=== PATIENT | female | born 2000 | race Caucasian/White ===

== ENCOUNTER → 2024-10-20 | Outpatient (CLI) | payer BC ==
[2024-10-20 16:29] LABS: BASOPHIL # 0.1 10^3/uL (0.0-0.1); BASOPHIL % 0.7 % (0.1-1.2); EOSINOPHIL # 0.3 10^3/uL (0.0-0.2); EOSINOPHIL % 3.7 % (0.0-5.0); HEMATOCRIT(ML) 41.7 % (36.0-46.0); HEMOGLOBIN 13.7 g/dL (12.0-15.0); LYMPHOCYTES # 2.63 10^3/uL1 (1.0-4.8); LYMPHOCYTES % 35.6 % (24.0-44.0); MEAN CORP HGB 29.6 pg (26-34); MEAN CORP HGB CONCENTRATION 32.9 g/dL (33-36.5); MEAN CORP VOLUME 90.1 fL (78-100); MONOCYTES # 0.5 10^3/uL (0.3-0.8); MONOCYTES % 6.8 % (5.0-12.0); NEUTROPHIL # 3.9 10^3/uL (1.8-7.7); NEUTROPHILS % 53.1 % (41.0-85.0); PLATELET COUNT 296 10^3/uL (150-400); RED BLOOD CELL 4.63 10^6/uL (4.00-5.20); RED CELL DISTRIBUTION WIDTH 12.1 % (11.5-14.5); WHITE BLOOD CELL 7.4 10^3/uL (4.5-11.0)
[2024-10-20 16:33] LABS: +ADD MANUAL DIFF(NO CHRG) 0
[2024-10-20 17:16] LABS: ALBUMIN(ML) 3.6 g/dL (3.4-5.0); ALBUMIN/GLOBULIN RATIO 0.947; ANION GAP 10.5; BUN/CREATININE RATIO 15.38 (10.0-20.0); C-REACTIVE PROTEIN 0.54 mg/dL (0.00-5.00); CALCIUM 9.3 mg/dL (8.4-10.5); CREATININE SERUM 0.91 mg/dL (0.59-1.40); POTASSIUM 3.5 mmol/L (3.6-5.2)
== END | disposition home or self-care (01) ==
LOC: LAB 15:54
PROVIDERS: ATTEND Nurse Practitioner Family
DX: R73.01 Impaired fasting glucose (principal); K59.00 Constipation, unspecified; R53.83 Other fatigue; F41.9 Anxiety disorder, unspecified; L65.9 Nonscarring hair loss, unspecified
CPT/HCPCS: 36415; 80050; 82607; 82746; 83036; 83735; 84439; 84481; 85651; 86140

== ENCOUNTER → 2024-11-14 | Outpatient (CLI) | payer BC | END | disposition home or self-care (01) | LOC: RAD 13:18 | PROVIDERS: ATTEND Nurse Practitioner Family | DX: N83.201 Unspecified ovarian cyst, right side (principal); E06.3 Autoimmune thyroiditis; N88.8 Other specified noninflammatory disorders of cervix uteri | CPT/HCPCS: 76536; 76830; 76856 ==